=== PATIENT | male | born 1970 | race Hispanic/Latino ===

== ENCOUNTER 2018-11-29 10:15 | Observation (INO) | payer SELFPAY ==
[~2018-11-29] VITALS: Ht 180.3 cm; Wt 144.4 kg
--- OUTSIDE RECORDS SUMMARY | 2018-11-29 10:18 | XMS REPORT | Clinical Summary ---
Author Author [facility] Address Unknown Phone Unavailable Care Team Providers Care Gas Engine Operator Generators Name Role Phone Asked, No Pcp PCP Unavailable Allergies No Known Allergies Medications End Date Status Medication Sig Dispensed Refills Start Date Active lisinopril Take 1 tablet 30 tablet 0 (PRINIVIL,ZESTRIL) 10 mg (10 mg total) 7 tablet by mouth daily for 30 days. Active Problems Problem Noted Date Essential hypertension 09/14/2017 Diabetes 09/14/2017 Anemia of chronic disease 09/14/2017 Hypoalbuminemia 09/14/2017 Nephrotic syndrome due to diabetes mellitus 09/13/2017 Anasarca 09/06/2017 Acute renal failure superimposed on chronic kidney disease 09/06/2017 Family History Medical History Relation Name Comments Diabetes type II Father Hypertension Father Stroke Father Kidney failure Sister Relation Name Status Comments Father Sister Social History Date Tobacco Use Types Packs/Day Years Used Never Smoker Alcohol Use Drinks/Week oz/Week Comments No Sex Assigned at Date Recorded Not on file Industry Job Start Date Occupation Not on file Not on file Not on file Travel End Travel History Travel Start No recent travel history available. Last Filed Vital Signs Not on file Plan of Treatment Health Maintenance Due Date Last Done Comments DIABETIC RETINAL EYE EXAM 1970 DIABETIC FOOT EXAM 02/12/1978 COLON CANCER SCREENING 02/12/2018 SHINGLES VACCINES (1 of 02/12/2018 2) INFLUENZA VACCINE 05/22/2018 Implants Device Identifier Shelf Expiration Date Model / Serial / Lot Implanted Type Area Manufactur er 07/21/2018 [id number] / / [id number] Catheter Dialysis Glidepath Implantabl N/A: N/A BARD [id number] Symmetric Tip - e Infusion PERIPHERAL [id number] Ports or VASCULAR Implanted: 09/21/2017 (Quantity not Accessorie on file) s Results Not on fileafter 11/28/2017 Advance Directives Patient has advance care planning documents on file. For more information, nela thomas contact: Ori Kaufman [address] [place] [address]
[2018-11-29 10:59] LABS: BASOPHILS % 0.6 % (0.0-1.0); EOSINOPHILS # (AUTO) 0.3 (0.0-0.4); EOSINOPHILS % 6.6 % (0.0-6.0); HEMATOCRIT 35.4 % (38.2-49.6); HEMOGLOBIN 12.2 g/dL (14.0-18.0); LYMPHOCYTES # (AUTO) 1.4 (1.0-3.2); LYMPHOCYTES % 28.1 % (18.0-39.1); MEAN CORPUSCULAR HEMOGLOBIN 32.8 pg (28-32); MEAN CORPUSCULAR HGB CONC 34.5 g/dL (31-35); MEAN CORPUSCULAR VOLUME 95.2 fL (81-99); MONOCYTES # (AUTO) 0.4 (0.2-0.8); MONOCYTES % 7.2 % (4.4-11.3); NEUTROPHILS # (AUTO) 2.9 (2.1-6.9); NEUTROPHILS % 57.3 % (38.7-80.0); PLATELET COUNT 167 x10e3/uL (140-360); RED BLOOD COUNT 3.72 x10e6/uL (4.3-5.7); RED CELL DISTRIBUTION WIDTH 13.9 % (11.7-14.4)
[2018-11-29 11:05] LABS: CLARITY,URINE SL CLOUDY (CLEAR); COLOR,URINE YELLOW (YELLOW); INR 0.88; LEUKOCYTE ESTERASE ,URINE NEGATIVE (NEGATIVE); NITRITE,URINE NEGATIVE (NEGATIVE); PROTHROMBIN TIME 12.8 seconds (11.9-14.5)
[2018-11-29 11:06] LABS: BILIRUBIN,URINE NEGATIVE (NEGATIVE); KETONES,URINE NEGATIVE (NEGATIVE); PARTIAL THROMBOPLASTIN TIME 33.2 seconds (23.8-35.5); PROTEIN,URINE DIPSTICK 3+ (NEGATIVE); URINE UROBILINOGEN 0.2 mg/dL (0.2 - 1)
[2018-11-29 11:11] LABS: ALBUMIN 3.1 g/dL (3.5-5.0); ALBUMIN/GLOBULIN RATIO 0.7 (0.8-2.0); ANION GAP 21.4 mmol/L (8-16); CALCIUM 8.4 mg/dL (8.4-10.2); CREATININE, SERUM 9.59 mg/dL (0.72-1.25); POTASSIUM 4.4 mmol/L (3.5-5.1)
[2018-11-29 11:17] LABS: AMORPHOUS SEDIMENT,URINE RARE (FEW); BACTERIA,URINE RARE /HPF; CREATINE KINASE MB 9.5 ng/mL (0-5.0); EPITHELIAL CELLS,URINE RARE /LPF
[2018-11-29] MEDS ORDERED: INSULIN REGULAR, HUMAN 100 UNIT/1 ML 3ML VIAL IV ONE (11:45)
--- NOTE | 2018-11-29 12:37 | Diagnostic Imaging Report ---
EXAMINATION: CHEST SINGLE (PORTABLE) INDICATION: Pulmonary edema. COMPARISON: None FINDINGS: Somewhat limited study secondary to portable technique and soft tissue attenuation. TUBES and LINES: Right-sided tunneled hematosis catheter terminates in the expected location of the right atrium. LUNGS: Low lung volumes. There is perihilar fullness and indistinctness of the pulmonary vasculature. Mild patchy opacities at the bilateral lung bases. PLEURA: No pleural effusion or pneumothorax. HEART AND MEDIASTINUM: The cardiomediastinal silhouette is unremarkable. BONES AND SOFT TISSUES: No acute osseous lesion. Soft tissues are unremarkable. UPPER ABDOMEN: No free air under the diaphragm. IMPRESSION: Findings consistent with moderate pulmonary edema. Patchy opacities at the lung bases could represent alveolar edema, atelectasis, or pneumonia in the appropriate clinical setting. Followup chest radiograph is suggested to evaluate for resolution. Signed by: Dr. Ramsey Wright MD on 11/29/2018 12:34 PM
[2018-11-29] MEDS ORDERED: ONDANSETRON HCL INJ 2MG/ML 2ML 2 MG/ML VIAL IV PRN (12:45)
[2018-11-29] MEDS ORDERED: SODIUM CHLORIDE FLUSH 10 ML SYR INJ PRN (12:45)
--- NOTE | 2018-11-29 13:57 | NUR ---
SPOKE WITH EMMA WITH [facility]; NOTIFIED OF PATIENT NEEDING DIALYSIS; COMMUNICATED WITH DICKSON, HOUSEKEEPER HEAD, TO ENSURE ROOM IS AVAILABLE FOR PATIENT; PATIENT GOING TO ROOM 109. INFO REPORTED TO MAC[facility] TO SET UP
--- OUTSIDE RECORDS SUMMARY | 2018-11-29 14:04 | XMS REPORT | Clinical Summary ---
Author Author [facility] Address Unknown Phone Unavailable Care Team Providers Care Shipping Manager Name Role Phone Asked, No Pcp PCP [...] Lot Implanted Type Area Manufactur er 07/21/2018 [id number] / / [id number] Catheter Dialysis Glidepath Implantabl N/A: N/A BARD [id number] Symmetric Tip - e Infusion PERIPHERAL [id number] Ports or VASCULAR Implanted: 09/21/2017 (Quantity not Accessorie on file) s Results Not on fileafter 11/28/2017 Advance Directives Patient has advance care planning documents on file. For more information, nela thomas contact: Ori Kaufman [address] [place] [address]
--- OUTSIDE RECORDS SUMMARY | 2018-11-29 14:04 | XMS REPORT ---
Author Author [facility] Address Unknown Phone Unavailable Care Team Providers Care Auto Body Customizer Name Role Phone Mary PAREDES Unavailable Unavailable Problems This patient has no known problems. Allergies, Adverse Reactions, Alerts This patient has no known allergies or adverse reactions. Medications This patient has no known medications. Results Test Description Test Time Test Comments Text Results Atomic Results Result Comments CHEST SINGLE (PORTABLE) 2018-11-29 12:31:00 [place] [address] Patient Name: BETTYE NUNES MR #: [id number] : 1970 Age/Sex: 48/M Req #: [id number] Adm Physician: Ordered by: KATE CEE NUT PROCESS HELPER Report #: [id number] Location: ER Room/Bed: Procedure: [id number] DX/CHEST SINGLE (PORTABLE) Exam Date: Exam Time: REPORT STATUS: Signed EXAMINATION: CHEST SINGLE (PORTABLE) INDICATION: Pul monary edema. COMPARISON: None FINDINGS: Somewhat limited study secondary to portable technique and soft tissue attenuation. TUBES and LINES: Right-sided tunneled hematosis catheter terminates in the expected location of the right atrium. LUNGS: Low lung volumes. There is perihilar fullness and indistinctness of the pulmonary vasculature. Mild patchy opacities at the bilateral lung bases. PLEURA: No pleural effusion or pneumothorax. HEART AND MEDIASTINUM: The cardiomediastinal silhouette is unremarkable. BONES AND SOFT TISSUES: No acute osseous lesion. Soft tissues are unremarkable. UPPER ABDOMEN: No free air under the diaphragm. IMPRESSION: Findings consistent with moderate pulmonary edema. Patchy opacities at the lung bases could represent alveolar edema, atelectasis, or pneumonia in the appropriate clinical setting. Followup chest radiograph is suggested to evaluate for resolution. Signed by: Dr. Kal Packer MD on 11/29/2018 12:34 PM Dictated By: KAL PACKER MD 1234 Transcribed By: MARCUS on 11/29/18 1234 COPY TO: KATE CEE NP
--- NOTE | 2018-11-29 14:40 | NUR ---
Patient admitted to the unit from ER. Patient arrived via wheelchair. Patient is AAOx3. Namibian speaking only. Patient wears glasses but vision is impaired d/t cataracts. Lung hairston clear to auscultation. Bowel sounds present x4. 3+ edema noted to BLE. Right subclavian HD cath in place. Patient to receive Dialysis today. Patient ambulates with a straight cane.
[2018-11-29] MEDS ORDERED: MANNITOL 25% 12.5GM/50 ML VIAL IV PRN (15:15)
[2018-11-29] MEDS ORDERED: SODIUM CHLORIDE 0.9% 250ML 500 ML IV PRN (15:15)
[2018-11-29] MEDS ORDERED: ALBUMIN 25% 12.5GM 0.25 GM/ML BTL IV PRN (15:15)
[2018-11-29] MEDS ORDERED: SODIUM CHLORIDE 0.9% 1000ML 2,000 ML IV PRN (15:15)
[2018-11-29] MEDS ORDERED: HEPARIN SOD (PORCINE) 1000 UNIT/ML SDV IV PRN (15:15)
[2018-11-29] MEDS ORDERED: NIFEDIPINE CR 30 MG TAB PO ONE (15:30)
[2018-11-29] MEDS ORDERED: HYDRALAZINE HCL 20 MG/ML VIAL IV PRN (15:30)
[2018-11-29] MEDS ORDERED: DEXTROSE 50% SYRINGE 50 ML IV PRN (15:30)
[2018-11-29] MEDS: INSULIN LISPRO 100 UNIT/1 ML 3ML VIAL SQ SCH ×2 (15:36→21:10)
[2018-11-29 16:05] VITALS: BP 200/92
[2018-11-29 16:21] VITALS: BP 200/92
[2018-11-29 18:42] LABS: CREATINE KINASE MB 10.2 ng/mL (0-5.0)
--- NOTE | 2018-11-29 19:33 | Consultation ---
DATE OF CONSULTATION: November 29, 2018 This is a 48-year-old gentleman who dialyzed in [place], came her to [place]. Last dialysis Sunday. He checked into the hospital for dialysis, completely asymptomatic. Denies shortness of breath, chest pain, headache, fever, chills, nausea, vomiting. He was hypertensive earlier, started on Procardia. Blood pressure is not improved. PHYSICAL EXAMINATION VITALS: At the moment, blood pressure 156/86, pulse rate 73, afebrile. HEAD AND NECK: Cornea clear. Mucosa moist. Neck veins flat. LUNGS: Relatively clear. Occasional rales noted, right base more than left. HEART: S1, S2 audible. No rubs or gallop. ABDOMEN: Soft, nontender. EXTREMITIES: Lower extremity, 1+ edema. LABS: White count 4.9, hemoglobin 12.2. Potassium 4.4, bicarbonate 22, creatinine 9.59. Blood sugar was elevated, but relatively better now. Troponin I 0.057. IMPRESSION AND PLAN: Underlying end-stage disease, poorly controlled hypertension, noncompliant high risk patient who dialyzed in [place]. He states he resist to go back to [place], states his family does not want to take care of him. Plan on hemodialysis. Blood pressure controlled. Ultrafiltration, on hemodialysis. Further recommendations to follow. Job#: [id number] CORINNA
[2018-11-29 20:00] VITALS: BP 96/53
--- NOTE | 2018-11-29 21:10 | NUR ---
RECEIVED REPORT FROM AM RN.WALKING ROUNDS DONE.DIALYSIS DONE.NO PAIN VOICED. NO RESP.DISTRESS.SHOWER TAKEN.BED LOCKED AND IN LOWEST POSITION.PHONE AND CALL LIGHT WITHIN REACH.INSTRUCTED TO CALL FOR ASSISTANCE NEEDED.KEEP MONITOR THE PT.
[2018-11-29 22:30] VITALS: BP 96/53
[2018-11-30] VITALS (8 sets, daily range): BP systolic 89–145; BP diastolic 54–67
--- NOTE | 2018-11-30 06:05 | Diagnostic Imaging Report ---
EXAM: XR CHEST 1 VIEW DATE: 11/30/2018 7:00 AM INDICATION: Volume overload COMPARISON: Previous day, no report available FINDINGS: Lines and Tubes: Stable right IJ Heart and Mediastinum: No acute cardiomediastinal findings. Lungs and Pleura: Mild edema, improved. Bones and Soft Tissues: No acute findings. IMPRESSION: 1. Improved edema. Signed by: Dr. Asif Kidd MD on 11/30/2018 6:01 AM
[2018-11-30 06:18] LABS: BASOPHILS % 0.4 % (0.0-1.0); EOSINOPHILS # (AUTO) 0.4 (0.0-0.4); EOSINOPHILS % 5.5 % (0.0-6.0); HEMATOCRIT 33.1 % (38.2-49.6); LYMPHOCYTES # (AUTO) 2.3 (1.0-3.2); LYMPHOCYTES % 32.7 % (18.0-39.1); MEAN CORPUSCULAR HEMOGLOBIN 32.1 pg (28-32); MEAN CORPUSCULAR HGB CONC 33.2 g/dL (31-35); MEAN CORPUSCULAR VOLUME 96.5 fL (81-99); MONOCYTES # (AUTO) 0.5 (0.2-0.8); MONOCYTES % 6.7 % (4.4-11.3); NEUTROPHILS # (AUTO) 3.7 (2.1-6.9); NEUTROPHILS % 54.4 % (38.7-80.0); PLATELET COUNT 172 x10e3/uL (140-360); RED BLOOD COUNT 3.43 x10e6/uL (4.3-5.7); RED CELL DISTRIBUTION WIDTH 13.9 % (11.7-14.4)
[2018-11-30 06:34] LABS: ANION GAP 17.9 mmol/L (8-16); CALCIUM 8.4 mg/dL (8.4-10.2); CREATININE, SERUM 7.56 mg/dL (0.72-1.25); POTASSIUM 3.9 mmol/L (3.5-5.1)
[2018-11-30 06:48] LABS: CREATINE KINASE MB 6.7 ng/mL (0-5.0)
--- NOTE | 2018-11-30 06:50 | NUR ---
REPORT GIVEN TO THE ONCOMING RN.WALKING ROUNDS DONE.STABLE CONDITION.
--- NOTE | 2018-11-30 07:21 | NUR ---
Rcvd patient in report this am. Patient is asleep in bed at this time. No s/s of distress noted
[2018-11-30] MEDS: NIFEDIPINE CR 30 MG TAB PO SCH (08:09)
[2018-11-30] MEDS: INSULIN LISPRO 100 UNIT/1 ML 3ML VIAL SQ SCH ×4 (08:23→20:58)
--- NOTE | 2018-11-30 09:06 | Progress Note ---
DATE: November 30, 2018 SUBJECTIVE: Feeling better. Blood pressure has improved. Minimal swelling. OBJECTIVE VITAL SIGNS: Temperature 98.2, pulse 68, blood pressure 109/54. CHEST: Clear. EXTREMITIES: Trace edema. VASCULAR: Right IJ tunneled dialysis catheter. ASSESSMENT: End-stage renal disease, fluid overload, vulnerable population, presumed diabetic nephropathy. PLAN: We will keep on Sunday, Sunday, Sunday dialysis. We will follow along. Job#: [id number] JUSTINE
--- NOTE | 2018-11-30 13:58 | History and Physical ---
CHIEF COMPLAINT: Volume overload, shortness of breath, homeless. HPI: This is a 48-year-old male with known history of ESRD on dialysis and hypertension, comes into the ED with complaints that he has missed dialysis for more than 1 week. The patient reports that he was recently in [place] and he was kicked out by his family, in which he came back to the [place] for further management and care. Here, his sister brought him to the hospital and she also kicked him out in the home and now, he is currently homeless. Prior to this, he was living with his sister, she kicked him out now. Nephrology was consulted. The patient had hemodialysis performed yesterday, in which he is now not short of breath. Yesterday, he had significant edema and shortness of breath and he had hemodialysis, his reason why he came to the hospital for. Patient is seen and evaluated at bedside on the medical floor. He is doing well with no other issues at this time. REVIEW OF SYSTEMS: Pertinent positives: Shortness of breath and lower extremity edema. Pertinent negatives: Denies any chest pain, palpitations, nausea, vomiting, diarrhea, dysuria, hematuria, frequency, urgency, lightheadedness, dizziness, abdominal pain, headache, cough, congestion, fever, or any other complaints. The rest of 14-point review of systems have been reviewed with the patient and are negative. ALLERGIES: NO KNOWN DRUG ALLERGIES. HOME MEDICATIONS: None. PAST MEDICAL HISTORY: ESRD on dialysis, hypertension. SURGICAL HISTORY: He had a tunneled dialysis catheter. FAMILY HISTORY: Hypertension and diabetes. SOCIAL HISTORY: No drugs. No alcohol. Does not smoke. PHYSICAL EXAMINATION VITAL SIGNS: Temperature is 97.9, pulse 71, respiratory rate is 18, blood pressure is 109/64, saturating 96% on room air. GENERAL: Not in acute distress. Alert and oriented x3, cooperative on examination. HEENT: Head is normocephalic and atraumatic. Eyes: Pupils are equal, round, reactive to light bilaterally. Extraocular movements are intact bilaterally. Throat with no evidence of any erythema or exudates in the posterior pharynx with poor dentition. NECK: Supple. Good range of motion. PULMONARY: Clear to auscultation bilaterally. No wheezing. No rales. No rhonchi. No crackles appreciated. CARDIOVASCULAR: Positive S1, S2. No murmurs, rubs, or gallops appreciated. ABDOMEN: Soft, nondistended, nontender to palpation. Bowel sounds are present. MUSCULOSKELETAL: Strength is 5/5 throughout. No evidence of any musculoskeletal deficits on examination. No weakness appreciated. NEUROLOGIC: Cranial nerves II through XII are grossly intact. No evidence of any neurological deficits on exam. SKIN: Intact. Warm to touch. Good cap refill. PSYCHIATRIC: Normal affect and mood. EXTREMITIES: No edema. Good range of motion throughout. LAB FINDINGS: Show white count is 6.2, hemoglobin 11, hematocrit is 33, platelets of 172. Sodium 139, potassium is 3.9, chloride 103, bicarb 23, anion gap 17, BUN is 38, creatinine is 7.5, and glucose 192. ASSESSMENT AND PLAN 1. End-stage renal disease, on hemodialysis. 2. Hypertensive urgency. 3. Anemia of end-stage renal disease. 4. Secondary hyperparathyroidism. 5. Medical noncompliance. 6. Now homeless. PLAN: At this time, nephrology consulted yesterday, in which he had hemodialysis yesterday. The patient is technically cleared for discharge, but he is now homeless, so I spoke with case management social worker and the case management social worker to see if they can arrange for further and also for placement. At this time, I am going to be waiting for the case management social worker and case management social worker to make that decision. Once this is made, the patient is ready for discharge home. He is ready for discharge home as we speak now. I will discuss this with the nephrology. Continue with nifedipine XL for blood pressure and hydralazine. Job#: [id number] LILLIANA
--- NOTE | 2018-11-30 15:21 | NUR ---
Met with patient, and Rhonda GARIBAY was present and interpreting. Pt states he lives in [place] and that is where he gets his dialysis. He states he has never gone to dialysis center here in the [place]. He states [facility] his dialysis catheter and set him up with dialysis, but he never went. He states he came to the [place] this time to be here for only 3 days to get on Social Security Disability, but was turned down. He states he will go back to [place] for dialysis, but his family will have to provide money for his bus ticket. He has a house and a in [place]. CM called his sister and left voicemail Mabel Bello [phone] that pt is ready to go back to [place] and needs assistance getting to bus and getting bus ticket. Requested she call his nurse back at [phone]. Updated his nurse, Theresa Fairbanks RN. DC Barrier: Safe Discharge to where he can get dialysis.
--- NOTE | 2018-11-30 19:05 | NUR ---
RECEIVED THE PT FROM MORNING RN.WALKING ROUNDS DONE.LYEING IN THE BED.STABLE CONDITION.
--- NOTE | 2018-11-30 21:30 | NUR ---
ASSESSMENT DONE.NO RESP.DISTRESS.NO PAIN VOICED.FAMILY MEMBER AT BED SIDE.BED LOCKED AND IN LOWEST POSITION.PHONE AND CALL LIGHT WITHIN REACH.INSTRUCTED TO CALL FOR ASSISTANCE NEEDED.
[2018-12-01] VITALS (8 sets, daily range): BP systolic 124–172; BP diastolic 60–71
[2018-12-01 06:21] LABS: BASOPHILS % 0.7 % (0.0-1.0); EOSINOPHILS # (AUTO) 0.4 (0.0-0.4); EOSINOPHILS % 6.1 % (0.0-6.0); HEMATOCRIT 32.9 % (38.2-49.6); HEMOGLOBIN 11.1 g/dL (14.0-18.0); LYMPHOCYTES # (AUTO) 2.4 (1.0-3.2); LYMPHOCYTES % 39.2 % (18.0-39.1); MEAN CORPUSCULAR HEMOGLOBIN 32.1 pg (28-32); MEAN CORPUSCULAR HGB CONC 33.7 g/dL (31-35); MEAN CORPUSCULAR VOLUME 95.1 fL (81-99); MONOCYTES # (AUTO) 0.5 (0.2-0.8); MONOCYTES % 7.5 % (4.4-11.3); NEUTROPHILS # (AUTO) 2.8 (2.1-6.9); NEUTROPHILS % 46.3 % (38.7-80.0); PLATELET COUNT 162 x10e3/uL (140-360); RED BLOOD COUNT 3.46 x10e6/uL (4.3-5.7); RED CELL DISTRIBUTION WIDTH 13.8 % (11.7-14.4)
[2018-12-01 06:28] LABS: ALBUMIN 2.8 g/dL (3.5-5.0); ALBUMIN/GLOBULIN RATIO 0.7 (0.8-2.0); ANION GAP 19.2 mmol/L (8-16); CALCIUM 8.4 mg/dL (8.4-10.2); CREATININE, SERUM 9.51 mg/dL (0.72-1.25); POTASSIUM 4.2 mmol/L (3.5-5.1)
[2018-12-01 06:47] LABS: CREATINE KINASE MB 6.4 ng/mL (0-5.0)
--- NOTE | 2018-12-01 06:50 | NUR ---
REPORT GIVEN TO THE ONCOMING RN.WALKING ROUNDS DONE.STABLE CONDITION.
--- NOTE | 2018-12-01 07:26 | NUR ---
Rcvd patient in report this am. Patient is asleep in bed at this time. No s/s of distress noted
[2018-12-01] MEDS: NIFEDIPINE CR 30 MG TAB PO SCH (08:11)
[2018-12-01] MEDS: INSULIN LISPRO 100 UNIT/1 ML 3ML VIAL SQ SCH ×4 (08:38→21:10)
--- NOTE | 2018-12-01 12:00 | NUR ---
Patient is AAOx3. Patient is ambulatory with a cane. Lung hairston clear to auscultation. Bowel sounds present x4. Right subclavian line to right chest wall. Patient receiving dialysis. No shortness of breath noted. 2+ edema noted to BLE.
--- NOTE | 2018-12-01 13:19 | Progress Note ---
DATE: December 01, 2018 MEDICINE PROGRESS NOTE SUBJECTIVE: Patient is doing well today with no complaints. He is sitting on the [place]. He is tolerating diet well. We are basically waiting for placement to determine the next line of care for this gentleman. I am not sure if he is going to receive dialysis here or he is going to go back to [place] to receive dialysis. I had a practical nursing instructor to talk with him today at this time. OBJECTIVE VITAL SIGNS: Temperature is 96.8, pulse 68, respiratory rate 20, blood pressure 152/71, pulse ox 95% on room air. LABORATORY FINDINGS: Show a white count of 6.1, hemoglobin of 11.1, hematocrit is 33, platelets of 162. Chemistry, sodium 136, potassium 4.2, chloride 100, bicarb 21, anion gap of 19, BUN 50, creatinine is 9.5. PHYSICAL EXAMINATION GENERAL: Not in acute distress. Alert and oriented x3. Cooperative on examination. HEENT: Head is normocephalic and atraumatic. Eyes: Pupils equal, round and reactive to light bilaterally. Extraocular movements intact bilaterally. NECK: Supple. Good range of motion. Throat with no evidence of any erythema or exudates in the posterior pharynx. Has poor dentition. PULMONARY: Clear to auscultation bilaterally. No wheezing. No rales. No rhonchi. No crackles appreciated. CARDIOVASCULAR: Positive S1 and S2. No murmurs, rubs or gallops appreciated. ABDOMEN: Soft, nondistended and nontender to palpation. Bowel sounds are present. MUSCULOSKELETAL: Strength is 5/5 throughout. No evidence of any musculoskeletal deficit on examination. No weakness appreciated. NEUROLOGICAL: Cranial nerves II through XII are grossly intact. No evidence of any neurological deficits on exam. IMPRESSION 1. End-stage renal disease, on hemodialysis. 2. Hypertensive urgency. 3. Anemia of end-stage renal disease. 4. Secondary hyperparathyroidism. 5. Medical noncompliance. 6. Homeless. PLAN: At this time, he will receive dialysis tomorrow by Nephrology. My previous concern initially with this gentleman is that he will need placement either here in [place] with hemodialysis in which he reports that he would work he goes back [place] and [place]. He is [place]. I am not sure exactly the next plan of care. I had a practical nursing instructor to discuss overall plan of care with him. We will have case management and social work therapist to help with this matter in terms of placement. Job#: [id number] PATY
--- NOTE | 2018-12-01 19:00 | NUR ---
Received report from morning rn.walking rounds done.sitting on the recyliner.sable condition.
--- NOTE | 2018-12-01 22:20 | NUR ---
PT TOOK SHOWER.ASSESSMENT DONE.NO RESP.DISTRESS.NO PAIN VOICED.BED ALARM ON.BED LOCKED AND IN LOWEST POSITION.PHONE AND CALL LIGHT WITHIN REACH.INSTRUCTED TO CALL FOR ASSISTANCE NEEDED.
[2018-12-02] VITALS: BP 152/68
[2018-12-02 04:00] VITALS: BP 127/61
[2018-12-02 05:53] LABS: BASOPHILS % 0.4 % (0.0-1.0); EOSINOPHILS # (AUTO) 0.3 (0.0-0.4); EOSINOPHILS % 4.9 % (0.0-6.0); HEMOGLOBIN 10.7 g/dL (14.0-18.0); LYMPHOCYTES # (AUTO) 2.7 (1.0-3.2); LYMPHOCYTES % 39.8 % (18.0-39.1); MEAN CORPUSCULAR HEMOGLOBIN 32.7 pg (28-32); MEAN CORPUSCULAR HGB CONC 34.5 g/dL (31-35); MEAN CORPUSCULAR VOLUME 94.8 fL (81-99); MONOCYTES # (AUTO) 0.5 (0.2-0.8); NEUTROPHILS # (AUTO) 3.2 (2.1-6.9); NEUTROPHILS % 47.6 % (38.7-80.0); PLATELET COUNT 156 x10e3/uL (140-360); RED BLOOD COUNT 3.27 x10e6/uL (4.3-5.7); RED CELL DISTRIBUTION WIDTH 13.2 % (11.7-14.4)
[2018-12-02 06:17] LABS: ALBUMIN 2.8 g/dL (3.5-5.0); ALBUMIN/GLOBULIN RATIO 0.8 (0.8-2.0); ANION GAP 19.4 mmol/L (8-16); CALCIUM 8.2 mg/dL (8.4-10.2); CREATININE, SERUM 10.52 mg/dL (0.72-1.25); POTASSIUM 4.4 mmol/L (3.5-5.1)
--- NOTE | 2018-12-02 06:50 | NUR ---
Report given to the oncoming rn.walking rounds done.stable condition.
[2018-12-02] MEDS: INSULIN LISPRO 100 UNIT/1 ML 3ML VIAL SQ SCH ×2 (07:30→11:30)
[2018-12-02 07:48] VITALS: BP 136/67
--- NOTE | 2018-12-02 08:31 | NUR ---
paged dr rincon re: bun 61,creatine lab 10. spoke with jose carlos, awaiting call back
[2018-12-02] MEDS: NIFEDIPINE CR 30 MG TAB PO SCH ×2 (09:00→15:30)
[2018-12-02 09:10] VITALS: BP 136/67
--- NOTE | 2018-12-02 09:15 | NUR ---
ASSESSMENT COMPLETE NO DISTRESS NOTED, UPDATED ON POC VOICED UNDERSTANDING, DENIES PAIN AT THIS TIME, L AC 18G NO SS OF INFILTRATION NOTED, NO OTHER CO VOICED CALL LIGHT IN REACH WILL CONTINEU TO MONITOR
--- NOTE | 2018-12-02 10:45 | NUR ---
SPOKE WITH PATIENT WITH DOCTOR, HE HAS DIALYSIS SET UP IN [place], HIS SISTER IS PICKING HIM UP TODAY AT 230 TO GET HIM TO THE BUS STATION FOR HIS TRIP BACK TO [place]. HE HAS QUESTIONS ABOUT HIS BILL, CALLED BILLING OFFICE AND SPOKE WITH THEM TO LET KNOW CONCERNS AND HIS DISCHARGE TIME.
[2018-12-02 11:36] VITALS: BP 141/65
--- NOTE | 2018-12-02 12:08 | NUR ---
GAVE PACKET OF INFORMATION WITH COMMUNITY [employer]OURCES FOR ASSISTANCE WITH LOW TO NO INCOME TO PATIENT. RESOURCES THAT PATIENT MAY BE ABLE TO FOLLOW UP UPON DISCHARGE. PT EDUCATED ON EACH RESOURCE AND UNDERSTANDING HOW TO FOLLOW UP TO SEE IF QUALIFIED FOR EACH RESOURCE.
[2018-12-02] MEDS ORDERED: HEPARIN SOD (PORCINE) 1000 UNIT/ML SDV IV PRN (12:15)
--- NOTE | 2018-12-02 13:47 | Discharge Summary ---
FINAL DISCHARGE DIAGNOSES 1. End-stage renal disease, on hemodialysis. 2. Hypertensive urgency. 3. Anemia of end-stage renal disease. 4. Secondary hyperparathyroidism. CONSULTANTS: Nephrology. VITAL SIGNS: Temperature is 97.4, pulse 68, respiratory rate 17, blood pressure 136/67, pulse ox 99% on room air. LAB FINDINGS: Show white count of 6.3, hemoglobin 11.7, hematocrit 31.8, and platelets of 156,000. Coagulation: PT 12, INR 0.88 and PTT 33. Chemistry: Sodium 137, potassium 4.4, chloride 101, bicarb 21, anion gap of 19, BUN is 2, creatinine 0.5, glucose is 215. His albumin is 2.8. Urinalysis concerning and was found to be negative. MICROBIOLOGY: None. IMAGING STUDIES: Chest x-ray improved edema. HOSPITAL COURSE: This is a 48-year-old male with known ESRD dialysis patient and underlying hypertension comes in after being dropped off by his sister to have hemodialysis. Patient was just recently in [place] and was kicked out of his 's house. Came in here and his family kicked him out as well, and was brought into [facility] with shortness of breath. Patient had missed dialysis for more than a week. Patient was dialyzed here by nephrology. He had several treatments here. Case management was involved. Patient now reports that he will go back to [place] to receive hemodialysis while he is there. Patient will receive dialysis today on December 02, 2018, and will take a bus ride to [place] and receive hemodialysis on . He will receive dialysis today prior to being discharged. On the day of discharge, vital signs stable and labs remained stable. Patient was seen and evaluated and examined thoroughly on the day of discharge. No new complaints. Patient verbalized understanding and agrees to care. Will coordinate outpatient with the primary care physician and his dialysis per schedule. MEDICATIONS: See med reconciliation form. DISPOSITION: Home. CONDITION: Stable. DIET: Heart-healthy. In the event of any worsening symptoms, the patient was advised to come back to the ED for further evaluation. Discharge summary took greater than 35 minutes. DEMETRIO ANDINO MD Job#: [id number] [place]
[2018-12-02 15:32] VITALS: BP 122/80
== END 2018-12-02 15:32 | disposition home or self-care (01) ==
LOC: ER 10:15 → ERHOLD 14:01 → MED/SURG 14:47
PROVIDERS: ADMIT Internal Medicine; ATTEND Internal Medicine
DX: E87.70 Fluid overload, unspecified (principal); R10.84 Generalized abdominal pain; E11.22 Type 2 diabetes mellitus with diabetic chronic kidney disease; I12.0 Hypertensive chronic kidney disease with stage 5 chronic kidney disease or end stage renal disease; N18.6 End stage renal disease; Z99.2 Dependence on renal dialysis; Z83.3 Family history of diabetes mellitus; Z82.49 Family history of ischemic heart disease and other diseases of the circulatory system; Z79.4 Long term (current) use of insulin; Z59.0 Homelessness; I16.0 Hypertensive urgency; D63.1 Anemia in chronic kidney disease; N25.81 Secondary hyperparathyroidism of renal origin; Z91.15 Patient's noncompliance with renal dialysis
CPT/HCPCS: 36415 ×4; 71045 ×2; 80048; 80053 ×3; 81001; 82550 ×3; 82553 ×3; 82948 ×4; 83880; 84484 ×3; 85025 ×4; 85610; 85730; 86704; 86705; 86706; 87340; 90935; 93005 ×2; 99284; G0378 ×4; J0360; J1644 ×2; J1817; J2150; J2405; J7030; 90962